=== PATIENT | female | born 1995 | race Two or more races ===

== ENCOUNTER 2019-08-04 14:17 | Emergency (ER) | payer SELFPAY ==
[2019-08-04] MEDS ORDERED: NORMAL SALINE 1000 ML 1,000 ML IV PRN (14:31)
--- NOTE | 2019-08-04 14:39 | ER Document Report ---
ED Medical Screen (RME) - General Chief Complaint: Urinary Frequency Stated Complaint: URINARY PROBLEM Time Seen by Provider: 08/04/19 14:29 Mode of Arrival: Ambulatory Information source: Patient TRAVEL OUTSIDE OF THE U[place] IN LAST 30 DAYS: No - HPI Notes: 08/04/19 14:38 This very pleasant 24-year-old female presented to the emergency room today stating that she has frequency urgency blood in her urine she is 7 months does have some intermittent cramping pains to her abdomen. - Related Data Allergies/Adverse Reactions: No Known Allergies Allergy (Verified 08/04/19 14:29) Physical Exam - Vital signs Vitals: Temp Pulse Resp BP Pulse Ox 98.1 F 80 16 97/59 L 96 08/04/19 14:27 08/04/19 14:27 08/04/19 14:27 08/04/19 14:27 08/04/19 14:27 Interpretation: Normal - General General appearance: Appears well, Alert - HEENT Head: Normocephalic, Atraumatic Eyes: Normal Pupils: PERRL - Respiratory Respiratory status: No respiratory distress Chest status: Nontender Breath sounds: Normal Chest palpation: Normal - Cardiovascular Rhythm: Regular Heart sounds: Normal auscultation Murmur: No - Abdominal Inspection: Normal Distension: No distension Bowel sounds: Normal Tenderness: Nontender Organomegaly: No organomegaly - Back Back: Normal, Nontender - Extremities General upper extremity: Normal inspection, Nontender, Normal color, Normal ROM, Normal temperature General lower extremity: Normal inspection, Nontender, Normal color, Normal ROM, Normal temperature, Normal weight bearing. No: Alejandra's sign - Neurological Neuro grossly intact: Yes Cognition: Normal Orientation: AAOx4 [place] Coma Scale Eye Opening: Spontaneous [place] Coma Scale Verbal: Oriented Otilia Coma Scale Motor: Obeys Commands Otilia Coma Scale Total: 15 Speech: Normal Motor strength normal: LUE, RUE, LLE, RLE Sensory: Normal - Psychological Associated symptoms: Normal affect, Normal mood - Skin Skin Temperature: Warm Skin Moisture: Dry Skin Color: Normal Course - Vital Signs Vital signs: Temp Pulse Resp BP Pulse Ox 98.1 F 80 16 97/59 L 96 08/04/19 14:27 08/04/19 14:27 08/04/19 14:27 08/04/19 14:27 08/04/19 14:27
[2019-08-04 15:48] LABS: ABSOLUTE EOSINOPHILS # (AUTO) 0.1 10^3/uL (0.0-0.6); ABSOLUTE LYMPHOCYTES (AUTO) 1.6 10^3/uL (0.5-4.7); ABSOLUTE MONOCYTES (AUTO) 0.9 10^3/uL (0.1-1.4); ABSOLUTE NEUT (AUTO) 6.6 10^3/uL (1.7-8.2); BASOPHILS % (AUTO) 0.2 % (0-2); EOSINOPHILS % (AUTO) 0.7 % (0-6); HEMATOCRIT 33.3 % (36.0-47.0); HEMOGLOBIN 11.4 g/dL (12.0-15.5); LYMPHOCYTES % (AUTO) 17.8 % (13-45); MEAN CORPUSCULAR HEMOGLOBIN 26.9 pg (27.0-33.4); MEAN CORPUSCULAR HGB CONC 34.2 g/dL (32.0-36.0); MEAN CORPUSCULAR VOLUME 79 fl (80-97); MONOCYTES % (AUTO) 9.6 % (3-13); PLATELET COUNT 222 10^3/uL (150-450); RED BLOOD COUNT 4.23 10^6/uL (3.72-5.28); SEGMENTED NEUTROPHILS % (AUTO) 71.7 % (42-78); TOTAL CELLS COUNTED % (AUTO) 100 %; WHITE BLOOD COUNT 9.3 10^3/uL (4.0-10.5)
[2019-08-04 15:50] LABS: ALBUMIN 3.4 g/dL (3.5-5.0); ALKALINE PHOSPHATASE 107 U/L (38-126); ANION GAP 7 (5-19); ASPARTATE AMINO TRANSFERASE 16 U/L (14-36); BILIRUBIN,TOTAL 0.2 mg/dL (0.2-1.3); BLOOD UREA NITROGEN 7 mg/dL (7-20); CARBON DIOXIDE 22 mmol/L (22-30); CHLORIDE 107 mmol/L (98-107); GLUCOSE 78 mg/dL (75-110); POTASSIUM 3.9 mmol/L (3.6-5.0); TOTAL PROTEIN 6.4 g/dL (6.3-8.2)
[2019-08-04 15:51] LABS: APPEARANCE,URINE CLOUDY; BILIRUBIN,URINE NEGATIVE (NEGATIVE); COLOR,URINE YELLOW; GLUCOSE, URINE NEGATIVE (NEGATIVE); KETONES,URINE TRACE mg/dL (NEGATIVE); LEUKOCYTE ESTERASE,URINE LARGE (NEGATIVE); NITRITE,URINE NEGATIVE (NEGATIVE); PROTEIN,URINE 30 mg/dL (NEGATIVE); URINE SPECIFIC GRAVITY 1.023
--- NOTE | 2019-08-04 16:14 | ER Document Report ---
Entered by CAYETANO ELLIS SCRIBE 08/04/19 1609 Acting as scribe for:HUYEN SHAH DO ED GI/ - General Chief Complaint: Urinary Frequency Stated Complaint: URINARY PROBLEM Time Seen by Provider: 08/04/19 14:29 Mode of Arrival: Ambulatory Information source: Patient Notes: This 24-year-old female patient presents to the emergency department today with complaints of hematuria and urinary frequency for the last few days. Patient is G5 and is currently 7 months . Patient had been being OBGYN through the but her got out several months ago so she has not had any OB follow up in several months. TRAVEL OUTSIDE OF THE [place] IN LAST 30 DAYS: No - Related Data Allergies/Adverse Reactions: No Known Allergies Allergy (Verified 08/04/19 14:29) Past Medical History - General Information source: Patient - Social History Smoking Status: Never Smoker Cigarette use (# per day): No Lives with: Family Family History: Reviewed & Not Pertinent Patient has suicidal ideation: No Patient has homicidal ideation: No Review of Systems - Review of Systems Constitutional: No symptoms reported EENT: No symptoms reported Cardiovascular: No symptoms reported Respiratory: No symptoms reported Gastrointestinal: No symptoms reported Genitourinary: See HPI, Frequency, Hematuria Female Genitourinary: See HPI, Musculoskeletal: No symptoms reported Skin: No symptoms reported Hematologic/Lymphatic: No symptoms reported Neurological/Psychological: No symptoms reported -: Yes All other systems reviewed and negative Physical Exam - Vital signs Vitals: Temp Pulse Resp BP Pulse Ox 98.1 F 80 16 97/59 L 96 08/04/19 14:27 08/04/19 14:27 08/04/19 14:27 08/04/19 14:27 08/04/19 14:27 - Notes Notes: Physical Exam: General: Alert, appears well. HEENT: Normocephalic. Atraumatic. PERRL. Extraocular movements intact. Oropharynx clear. Neck: Supple. Non-tender. Respiratory: No respiratory distress. Clear and equal breath sounds bilaterally. Cardiovascular: Regular rate and rhythm. Abdominal: Suprapubic tenderness with palpation. Gravid uterus. Back: No gross abnormalities. Extremities: Moves all four extremities. Upper extremities: Normal inspection. Normal ROM. Lower extremities: Normal inspection. No edema. Normal ROM. Neurological: Normal cognition. AAOx4. Normal speech. Psychological: Normal affect. Normal Mood. Skin: Warm. Dry. Normal color. Course - Re-evaluation Re-evalutation: 08/04/19 19:01 MDM 24 year old in 3rd trimester is here with uti. Edward is ok and she tells me she will follow up. - Vital Signs Vital signs: Temp Pulse Resp BP Pulse Ox 98.1 F 80 16 97/59 L 96 08/04/19 14:27 08/04/19 14:27 08/04/19 14:27 08/04/19 14:27 08/04/19 14:27 - Laboratory Result Diagrams: 08/04/19 14:41 08/04/19 14:41 Laboratory results interpreted by me: 08/04/19 08/04/19 08/04/19 14:41 14:41 15:32 Hgb 11.4 L Hct 33.3 L MCV 79 L MCH 26.9 L Sodium 135.6 L Albumin 3.4 L Urine Protein 30 H Urine Ketones TRACE H Urine Urobilinogen 4.0 H Ur Leukocyte Esterase LARGE H Urine HCG, Qual POSITIVE H Discharge - Discharge Clinical Impression: UTI (urinary tract infection) Qualifiers: Urinary tract infection type: acute cystitis Hematuria presence: with hematuria Qualified Code(s): N30.01 - Acute cystitis with hematuria Supervision of normal IUP (intrauterine ) in multigravida Qualifiers: Trimester: third trimester Qualified Code(s): Z34.83 - Encounter for supervision of other normal , third trimester Condition: Good Disposition: HOME, SELF-CARE Instructions: Cephalexin ([facility]), Urinary Tract Infection ([facility]) Additional Instructions: Call OB for follow up. Take your medicine as directed. Return here for any problems or any concerns. Referrals: IRA JIMENEZ MD [ACTIVE STAFF] - Follow up as needed I personally performed the services described in the documentation, reviewed and edited the documentation which was dictated to the scribe in my presence, and it accurately records my words and actions.
[2019-08-04] MEDS ORDERED: CEFTRIAXONE 1 GM/D5W RTU 1 GM/50 ML RTUPB IV ONE (16:15)
--- NOTE | 2019-08-04 16:51 | RADIOLOGY REPORT (SQ) ---
EXAM DESCRIPTION: U/S OB LIMITED COMPLETED DATE/TIME: 08/04/2019 4:36 pm REASON FOR STUDY: pain COMPARISON: None. TECHNIQUE: Limited transabdominal grayscale ultrasound for evaluation of specific requested obstetri poornima parameters. LIMITATIONS: None. FINDINGS: CERVICAL LENGTH: Unable to visualize the cervix - the patient's urinary bladder is empty. BISHOP: 8.1 cm. FHR: 1571 beats per minute. PRESENTATION: Not assessed. PLACENTA: Anterior ANATOMY: Not assessed OTHER: No other findings. IMPRESSION: LIMITED OBSTETRICAL ULTRASOUND WITH MEASURED PARAMETERS DELINEATED ABOVE. Trimester of : Third trimester - 28 weeks to delivery. TECHNICAL DOCUMENTATION: JOB ID: [id number] 2010 [employer]- All Rights Reserved Reading location - IP/workstation name: [email or web address]
[2019-08-04 19:32] VITALS: BP 100/62
== END 2019-08-04 19:32 | disposition home or self-care (01) ==
LOC: ER 14:17
DX: O23.13 Infections of bladder in pregnancy, third trimester (principal); R35.0 Frequency of micturition; R31.9 Hematuria, unspecified
CPT/HCPCS: 99284; 96361; 96365; 96366; 86900; 86901; 36415; 85025; 81025; 80053; 81001; 76815; J7030; J0696

== ENCOUNTER 2019-08-08 00:18 | Outpatient (CLI) | payer SELFPAY ==
[2019-08-08] MEDS ORDERED: CEFTRIAXONE INJ 1000 MG VIAL IM ONE (00:56)
[2019-08-08] MEDS ORDERED: RINGERS SOLUTION,LACTATED 1,000 ML IV PRN (00:56)
[2019-08-08] MEDS ORDERED: CEFTRIAXONE INJ 1000 MG VIAL IV ONE (00:56)
[2019-08-08] MEDS ORDERED: CEFTRIAXONE INJ 1000 MG VIAL ONE (00:57)
[2019-08-08 01:05] LABS: APPEARANCE,URINE SLIGHTLY-CLOUDY; BILIRUBIN,URINE NEGATIVE (NEGATIVE); COLOR,URINE YELLOW; GLUCOSE, URINE NEGATIVE (NEGATIVE); KETONES,URINE NEGATIVE (NEGATIVE); LEUKOCYTE ESTERASE,URINE NEGATIVE (NEGATIVE); NITRITE,URINE NEGATIVE (NEGATIVE); PROTEIN,URINE NEGATIVE (NEGATIVE); URINE SPECIFIC GRAVITY 1.023; UROBILINOGEN,URINE NEGATIVE mg/dL (<2.0)
[2019-08-08 01:18] LABS: URINE AMPHETAMINES SCREEN NEGATIVE; URINE BARBITURATES SCREEN NEGATIVE; URINE BENZODIAZEPINES SCREEN NEGATIVE; URINE COCAINE SCREEN NEGATIVE; URINE MARIJUANA (THC) SCREEN NEGATIVE; URINE METHADONE SCREEN NEGATIVE; URINE PHENCYCLIDINE SCREEN NEGATIVE
[2019-08-08] MEDS ORDERED: CEFTRIAXONE 1 GM/D5W RTU 1 GM/50 ML RTUPB IV ONE (02:00)
== END 2019-08-08 02:38 | disposition home or self-care (01) ==
LOC: LC 00:18
PROVIDERS: ATTEND Obstetrics & Gynecology Gynecology
PROC: 4A1HXCZ Monitoring of Products of Conception, Cardiac Rate, External Approach (ICD-10-PCS; principal; 2019-08-08)
DX: Z34.93 Encounter for supervision of normal pregnancy, unspecified, third trimester (principal)
CPT/HCPCS: 81001; 80307; 59899; J0696

== ENCOUNTER 2019-10-24 07:58 | Outpatient (CLI) | payer OTHER, MEDICAID ==
[2019-10-24 09:15] LABS: APPEARANCE,URINE SLIGHTLY-CLOUDY; BILIRUBIN,URINE NEGATIVE (NEGATIVE); COLOR,URINE YELLOW; GLUCOSE, URINE NEGATIVE (NEGATIVE); KETONES,URINE NEGATIVE (NEGATIVE); LEUKOCYTE ESTERASE,URINE LARGE (NEGATIVE); NITRITE,URINE NEGATIVE (NEGATIVE); PROTEIN,URINE NEGATIVE (NEGATIVE); URINE SPECIFIC GRAVITY 1.006
[2019-10-24 09:31] LABS: URINE AMPHETAMINES SCREEN NEGATIVE; URINE BARBITURATES SCREEN NEGATIVE; URINE BENZODIAZEPINES SCREEN NEGATIVE; URINE COCAINE SCREEN NEGATIVE; URINE MARIJUANA (THC) SCREEN NEGATIVE; URINE METHADONE SCREEN NEGATIVE; URINE PHENCYCLIDINE SCREEN NEGATIVE
--- NOTE | 2019-10-24 12:56 | Non Stress Test Report ---
Non Stress Test Datetime Report Generated by CPN: 10/24/2019 12:55 DEMOGRAPHIC EGA NST: 41.0 VITAL SIGNS Temperature - NST: 97.2 Pulse - NST: 101 RESP - NST: 16 NBPSYS NST: 103 NBPDIA NST: 70 MONITORING Monitor Explained: Monitor Explained; Test Explained; Patient Verbalized Understanding Time on Monitor: 10/24/2019 08:21 Time off Monitor: 10/24/2019 09:24 NST Duration: 63 NST INTERVENTIONS NST Interventions: None Physician Notified NST: J Sanz CNM BABY A: [id number] BABY A Movement : Present Contraction Frequency : none FHR Baseline : 135 Accelerations : 15X15 Decelerations : None Variability : Moderate 6-25bpm NST Review: Meets Criteria for Reactive NST NST Review and Verified By : Kristen Mooney RN NST Results: Reactive NST REPORT Report Trigger: Send Report
== END 2019-10-24 10:22 | disposition home or self-care (01) ==
LOC: LC 07:58
PROVIDERS: ATTEND Obstetrics & Gynecology Gynecology
DX: O36.8130 Decreased fetal movements, third trimester, not applicable or unspecified (principal); O09.33 Supervision of pregnancy with insufficient antenatal care, third trimester; O48.0 Post-term pregnancy; Z3A.41 41 weeks gestation of pregnancy
CPT/HCPCS: 80307; 81005

== ENCOUNTER 2019-10-27 07:25 | Inpatient (IN) | payer OTHER, MEDICAID ==
[2019-10-27] MEDS: RINGERS SOLUTION,LACTATED 1,000 ML IV PRN ×3 (08:04→12:56)
--- NOTE | 2019-10-27 08:34 | Admission Physical ---
Datetime Report Generated by CPN: 10/27/2019 08:34 CURRENT ADMISSION Chief Complaint: Scheduled Induction of Labor Indication for Induction: Post Dates Admit Impression : No Active Labor; Admit Plan: Admit to Unit; Initiate Labor Induction Protocol ALLERGIES Medication Allergies: No Medication Allergies: No Known Allergies (10/24/2019) Latex: No Latex Allergies OBSTETRICAL HISTORY EDC: 10/17/2019 00:00 : 5 Para: 2 Term: 1 : 1 SAB: 2 Livin Cesareans: 1 VBACs: 1 Current Procedures: Ultrasound Obstetrical History Comments: [id number] SAB G2- 2011 SAB G3- 2015 at 36 weeks for oligo, pre-e G4- 2016 at 41.5 weeks G5- current (Annotations: Data stored by [facility] on behalf of user) SEE RECORDS Alcohol: No Marijuana : No Cocaine: No Other Illicit Drugs: No Cigarettes: Never Smoker. [id number] PHYSICAL EXAM General: Normal HEENT: Deferred Neurologic: Normal Thyroid: Deferred Heart: Normal Lungs: Normal Breast: Deferred Back: Deferred Abdomen: Normal Genitourinary Exam: Deferred Extremities: Normal DTRs: Normal Pelvic Type: Adequate Physical Exam Comments: Cervix per Dr. Chambers, high, 2 cm Vital Signs: Reviewed MEMBRANES Membranes: Intact FETUS A EGA: 41.3 Monitoring: External US Accelerations: 15X15 Decelerations: None FHR Category: Category I Presentation: Vertex Admit Comment: late transfer 36 wks from [facility] 2018 INFORMED CONSENT Assignment: Shamika Reyes, MD Signature: with User ID: [email or web address] : with User ID: [email or web address]
[2019-10-27] MEDS ORDERED: OXYTOCIN/0.9 % SODIUM CHLORIDE 30 UNIT/500 ML RTUINJ IV PRN ×2 (08:36→16:57)
[2019-10-27] MEDS ORDERED: LIDOCAINE 1% INJ-PF (10 MG/ML) 30 ML SDV ONE (08:57)
[2019-10-27] MEDS ORDERED: OXYTOCIN 10 UNIT/ML VIAL ONE (08:57)
[2019-10-27] MEDS ORDERED: MISOPROSTOL 0.2 MG TABLET ONE (08:57)
[2019-10-27] MEDS ORDERED: OXYTOCIN/0.9 % SODIUM CHLORIDE 30 UNIT/500 ML RTUINJ ONE (08:57)
[2019-10-27 09:18] LABS: APPEARANCE,URINE CLEAR; BILIRUBIN,URINE NEGATIVE (NEGATIVE); COLOR,URINE YELLOW; GLUCOSE, URINE NEGATIVE (NEGATIVE); KETONES,URINE NEGATIVE (NEGATIVE); LEUKOCYTE ESTERASE,URINE SMALL (NEGATIVE); NITRITE,URINE NEGATIVE (NEGATIVE); PROTEIN,URINE NEGATIVE (NEGATIVE); URINE SPECIFIC GRAVITY 1.013
[2019-10-27 09:37] LABS: URINE AMPHETAMINES SCREEN NEGATIVE; URINE BARBITURATES SCREEN NEGATIVE; URINE BENZODIAZEPINES SCREEN NEGATIVE; URINE COCAINE SCREEN NEGATIVE; URINE MARIJUANA (THC) SCREEN NEGATIVE; URINE METHADONE SCREEN NEGATIVE; URINE PHENCYCLIDINE SCREEN NEGATIVE
[2019-10-27 09:38] LABS: HEMATOCRIT 30.7 % (36.0-47.0); HEMOGLOBIN 10.1 g/dL (12.0-15.5); MEAN CORPUSCULAR HEMOGLOBIN 24.8 pg (27.0-33.4); MEAN CORPUSCULAR HGB CONC 32.8 g/dL (32.0-36.0); MEAN CORPUSCULAR VOLUME 76 fl (80-97); PLATELET COUNT 236 10^3/uL (150-450); RED BLOOD COUNT 4.05 10^6/uL (3.72-5.28); RED CELL DISTRIBUTION WIDTH 15.8 % (11.5-14.0); WHITE BLOOD COUNT 8.8 10^3/uL (4.0-10.5)
[2019-10-27] MEDS ORDERED: FENTANYL/BUPIVACAINE/NS/PF 300 MCG/150 ML RTUINJ EPI ONE (10:46)
[2019-10-27] MEDS ORDERED: EPHEDRINE SULFATE INJ 50 MG/1 ML AMPULE ONE (10:46)
[2019-10-27] MEDS ORDERED: BUPIVACAINE HCL 0.25 % INJ/PF (2.5 MG/1 ML) 30 ML VIAL ONE (10:47)
[2019-10-27] MEDS ORDERED: PROMETHAZINE HCL 25 MG TABLET PO PRN (16:57)
[2019-10-27] MEDS ORDERED: DIPH/PERTUSS(ACELL)/TETANUS VAC/PF 0.5 ML SYR (>=10YO) IM PRN (16:57)
[2019-10-27] MEDS ORDERED: PROMETHAZINE HCL INJ 25 MG/1 ML VIAL IV PRN (16:57)
[2019-10-27] MEDS ORDERED: DIBUCAINE 1% OINTMENT 28 GM TP PRN (16:57)
[2019-10-27] MEDS ORDERED: PSEUDOEPHEDRINE HCL 30 MG TABLET PO PRN (16:57)
[2019-10-27] MEDS ORDERED: DIPHENHYDRAMINE HCL 25 MG CAPSULE PO PRN (16:57)
[2019-10-27] MEDS ORDERED: PROMETHAZINE HCL 25 MG SUPP.RECT PR PRN (16:57)
[2019-10-27] MEDS ORDERED: BENZOCAINE/MENTHOL AEROSOL SPRAY 56 ML TOP PRN (16:57)
[2019-10-27] MEDS ORDERED: MAGNESIUM HYDROXIDE SUSP 30 ML UDCUP PO PRN (16:57)
[2019-10-27] MEDS ORDERED: GLYCERIN/WITCH HAZEL LEAF 1 EACH MED..WIPE TP PRN (16:57)
[2019-10-27] MEDS ORDERED: ACETAMINOPHEN 650 MG SUPP.RECT PR PRN (16:57)
[2019-10-27] MEDS ORDERED: NA PHOS,M-B/NA PHOS,DI-BA (ADULT) 133 ML ENEMA PR PRN (16:57)
[2019-10-27] MEDS ORDERED: ACETAMINOPHEN WITH CODEINE #3 TABLET PO PRN (16:57)
[2019-10-27] MEDS ORDERED: ZOLPIDEM TARTRATE 5 MG TABLET PO PRN (16:57)
[2019-10-27] MEDS ORDERED: MEASLES,MUMPS&RUBELLA VACC/PF 0.5 ML VIAL SUBCUT PRN (16:57)
--- NOTE | 2019-10-27 19:37 | Delivery Summary ---
Del Sum A-C Datetime Report Generated by CPN: 10/27/2019 19:37 DELIVERY PERSONNEL DELIVERY PERSONNEL: [id number] Nurse Supervisor [employer] Certified:: Genie Ge CNM Labor and Delivery Nurse:: Aleena Mooney RN Student Observers:: Kinjal Sharma RN (2nd L_D Nurse) MATERNAL INFORMATION Delivery Anesthesia: Epidural Medications After Delivery: Pitocin 30 Units in 500ml NS/D5W Meds After Delivery Comment: open bolus Delivery QBL: 300 Delivery QBL Comment: 300 Maternal Complications: Other Complication Details: manual removal of placenta at 29 minutes secondary to bleeding Provider Comments: Pt C/+3 with urge to push, called into room for delivery. Pt not pushing effectively, head visible with pushing but with minimal descent. I was called to another room for imminent delivery. Baby was delivered by Kristen Mooney RN. I returned to room for delivery of placenta. Placenta was not at 29 min without bleeding. As bleeding increased I manually removed placenta. Perineum repaired as above. Bleeding stabilized, mother and baby stable upon leaving the room. LABOR SUMMARY EDC: 10/17/2019 00:00 No. Babies in Womb: 1 Attempted: Yes Labor Anesthesia: Epidural LABOR INFORMATION Reason for Induction: Post Dates Reason for Induction- Other: post dates Onset of Labor: 10/27/2019 11:00 Complete Dilatation: 10/27/2019 15:31 Oxytocin: Induction Group B Beta Strep: negative Steroids Given: None Reason Steroids Not Administered: Not Applicable MEMBRANES Membranes Rupture Method: Artificial Rupture of Membranes: 10/27/2019 09:57 Length of Rupture (hr): 6.00 Amniotic Fluid Color: Clear Amniotic Fluid Amount: Small Amniotic Fluid Odor: Normal STAGES OF LABOR Stage 1 hr: 4 Stage 1 min: 31 Stage 2 hr: 0 Stage 2 min: 26 Stage 3 hr: 0 Stage 3 min: 29 Total Time in Labor hr: 5 Total Time in Labor min: 26 VAGINAL DELIVERY Episiotomy: None Laceration #1: Perineal; Vaginal (Annotations: Data stored by [facility] on behalf of user) Laceration Extension #1: Second Degree Other Laceration: superficial vaginal lacerations Laceration Repair: Yes Laceration Repair Note: lidocaine used for repair, 2.0 chromic. Perineal repair in usual fashion Sponge Count Correct: N/A CSECTION DELIVERY Primary Indication: N/A Secondary Indication: N/A CSection Incidence: N/A Labor: N/A Elective: N/A CSection Incision: N/A BABY A INFORMATION Delivery Date/Time: 10/27/2019 15:57 Method of Delivery: Vaginal Nurse Controlled Delivery: Yes Born in Route : No : Successful Forceps: N/A Vacuum Extraction: N/A Shoulder Dystocia : No PRESENTATION/POSITION BABY A Presentation: Cephalic Cephalic Presentation: Vertex Vertex Position: Left Occipital Anterior Breech Presentation: N/A PLACENTA INFORMATION BABY A Placenta Delivery Time : 10/27/2019 16:26 Placenta Method of Delivery: Manual Removal Placenta Status: Delivered SCORES BABY A Heart Rate 1 min: >100 bpm Resp Effort 1 min: Good Cry Reflex Irritability 1 min: Cough or Sneeze or Pulls Away Muscle Tone 1 min: Active Motion Color 1 min: Body [place] [facility], Extremities Blue Resuscitation Effort 1 min: N/A SCORE 1 MIN: 9 Heart Rate 5 min: >100 bpm Resp Effort 5 min: Good Cry Reflex Irritability 5 min: Cough or Sneeze or Pulls Away Muscle Tone 5 min: Active Motion Color 5 min: Body [facility], Extremities Blue Resuscitation Effort 5 min: N/A SCORE 5 MIN: 9 INFANT INFORMATION BABY A Gestational Age at Delivery: 41.3 Gestational Status: Late Term- 41- 41.6 Weeks Infant Outcome : Liveborn Infant Condition : Stable Infant Sex: Male IDENTIFICATION BABY A Verification Date/Time: 10/27/2019 16:59 ID Band Number: [id number] Mother's Name Verified: Yes Infant RN Verifying : Kristen MooneyVISHAL Additional Verifying Personnel: Elo James RN WEIGHT/LENGTH BABY A Infant Birthweight (gm): 3750 Weight (lb): 8 Weight (oz): 4 Length (in): 20.50 Infant Length (cm): 52.07 CORD INFORMATION BABY A No. Cord Vessels: 3 Nuchal Cord : N/A Cord Blood Taken: Yes-For Eval (Mom's Blood Type - or O+) Infant Suction: None ASSESSMENT BABY A Infant Complications: None Physical Findings at Delivery: Within Normal Limits Infant Respirations: Appears Normal Skin to Skin: Yes Skin to Skin Time (min): 50 [employer]rain I Farmworker/ALS Called : No Infant Care By: Kristen Mooney RN Transferred To: Remains with Mother SIGNATURES Assignment: Shamika Chambers MD Signature: with User ID: [email or web address] : with User ID: [email or web address] : I was personally available for consultation and serving as supervising physician for the MLP.
[2019-10-27] MEDS: IBUPROFEN 800 MG TABLET PO SCH (22:01)
[2019-10-27] MEDS: FAMOTIDINE 20 MG TABLET PO SCH (22:01)
[2019-10-28] MEDS: DOCUSATE SODIUM 100 MG CAPSULE PO SCH ×3 (03:00→17:52)
[2019-10-28] MEDS: FERROUS SULFATE 325 MG TABLET PO SCH ×3 (03:00→17:53)
[2019-10-28] MEDS: IBUPROFEN 800 MG TABLET PO SCH ×3 (05:49→21:13)
[2019-10-28] MEDS: SIMETHICONE 80 MG TAB.CHEW PO PRN ×2 (05:49→21:14)
[2019-10-28 08:01] LABS: HEMATOCRIT 28.9 % (36.0-47.0); HEMOGLOBIN 9.5 g/dL (12.0-15.5); MEAN CORPUSCULAR HGB CONC 32.9 g/dL (32.0-36.0); MEAN CORPUSCULAR VOLUME 76 fl (80-97); PLATELET COUNT 227 10^3/uL (150-450); RED CELL DISTRIBUTION WIDTH 15.7 % (11.5-14.0); WHITE BLOOD COUNT 11.3 10^3/uL (4.0-10.5)
[2019-10-28] MEDS: PRENATAL VITAMIN W DHA CAPSULE PO SCH (10:01)
[2019-10-28] MEDS: SENNOSIDES/DOCUSATE 8.6-50 MG 1 EACH TABLET PO SCH (10:01)
[2019-10-28] MEDS: FAMOTIDINE 20 MG TABLET PO SCH ×2 (10:01→21:13)
[2019-10-28] MEDS: ACETAMINOPHEN WITH CODEINE #3 TABLET PO PRN ×2 (10:05→17:52)
--- NOTE | 2019-10-28 10:27 | PDOC PROGRESS REPORT ---
Subjective-OB Progress Note for:: 10/28/19 Physical Exam (OB) Vital Signs: Temp Pulse Resp BP Pulse Ox 98.1 F 83 18 96/57 L 100 10/28/19 07:45 10/28/19 07:45 10/28/19 07:45 10/28/19 07:45 10/28/19 07:45 Intake & Output 10/27/19 10/28/19 10/29/19 06:59 06:59 06:59 Intake Total 596 600 Balance 596 600 Weight 83.7 kg - PIH/Pre-Eclampsia Headache: Absent Epigastric Pain: No Visual Changes: No - Lochia Lochia Amount: Small 10-25 ml Lochia Color: Rubra/Red - Abdomen Description: Soft, Round Hernia Present: No Bowel Sounds: Normoactive Flatus Presence: Present Stool: No Fundal Description: Firm, Midline Fundal Height: u/u - u/2 Objective-Diagnostic Laboratory: 10/28/19 07:25 10/27/19 10/28/19 09:20 07:25 WBC 11.3 H RBC 3.80 Hgb 9.5 L Hct 28.9 L MCV 76 L MCH 25.0 L MCHC 32.9 RDW 15.7 H Plt Count 227 Blood Type O POSITIVE Antibody Screen NEGATIVE
[2019-10-29] MEDS: IBUPROFEN 800 MG TABLET PO SCH ×2 (05:45→15:20)
[2019-10-29 08:28] VITALS: BP 110/70
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
[2019-10-29] MEDS: FERROUS SULFATE 325 MG TABLET PO SCH ×2 (10:27→18:06)
[2019-10-29] MEDS: FAMOTIDINE 20 MG TABLET PO SCH (10:27)
[2019-10-29] MEDS: PRENATAL VITAMIN W DHA CAPSULE PO SCH (10:27)
[2019-10-29] MEDS: DOCUSATE SODIUM 100 MG CAPSULE PO SCH ×2 (10:27→18:06)
[2019-10-29] MEDS: SENNOSIDES/DOCUSATE 8.6-50 MG 1 EACH TABLET PO SCH (10:27)
[2019-10-29] MEDS: ACETAMINOPHEN WITH CODEINE #3 TABLET PO PRN (13:01)
== END 2019-10-29 19:48 | disposition home or self-care (01) | DRG 807 ==
LOC: LR 07:25 → 2S 19:43
PROVIDERS: ADMIT Obstetrics & Gynecology; ATTEND Obstetrics & Gynecology
PROC: 10E0XZZ Delivery of Products of Conception, External Approach (ICD-10-PCS; principal; 2019-10-27)
PROC: 0KQM0ZZ Repair Perineum Muscle, Open Approach (ICD-10-PCS; 2019-10-27)
PROC: 10907ZC Drainage of Amniotic Fluid, Therapeutic from Products of Conception, Via Natural or Artificial Opening (ICD-10-PCS; 2019-10-27)
DX: O48.0 Post-term pregnancy (principal); Z37.0 Single live birth; O34.219 Maternal care for unspecified type scar from previous cesarean delivery; O70.1 Second degree perineal laceration during delivery; O99.02 Anemia complicating childbirth; D64.9 Anemia, unspecified; Z3A.41 41 weeks gestation of pregnancy; Z86.14 Personal history of Methicillin resistant Staphylococcus aureus infection; Z91.5 Personal history of self-harm; Z91.411 Personal history of adult psychological abuse
CPT/HCPCS: 1967; 36415; 80307; 81005; 85027; 86592; 86850; 86900; 86901; J2590; J3010; J3490

== ENCOUNTER 2020-03-12 09:56 | Emergency (ER) | payer MEDICAID, OTHER ==
[2020-03-12] MEDS ORDERED: IBUPROFEN 600 MG TABLET PO ONE (10:30)
--- NOTE | 2020-03-12 10:30 | ER Document Report ---
HPI - HPI Patient complains to provider of: right knee injury Time Seen by Provider: 03/12/20 10:15 Pain Level: 3 Notes: 24-year-old female to the emergency department with complaints of right knee pain that occurred last night. She states she is immediately when she accidentally hit the brake on her left gate and twisted down onto her right knee. She states that since then she has pain in the knee. She cannot stand, and tolerate the pain but she has a lot of pain when she first is getting up and moving around. Not taking anything for the pain because she is breast-feeding. She denies any other injuries. She states the knee is swollen and red. - ROS Systems Reviewed and Negative: Yes All other systems reviewed and negative - CONSTITUTIONAL Constitutional: DENIES: Fever, Chills - EENT EENT: DENIES: Sore Throat, Ear Pain, Congestion - NEURO Neurology: DENIES: Headache, Weakness - CARDIOVASCULAR Cardiovascular: DENIES: Chest pain - RESPIRATORY Respiratory: DENIES: Trouble Breathing, Coughing - GASTROINTESTINAL Gastrointestinal: DENIES: Abdominal Pain, Nausea, Patient vomiting, Diarrhea - MUSCULOSKELETAL Musculoskeletal: REPORTS: Extremity pain - right knee pain - DERM Skin Color: Normal Skin Problems: None Past Medical History - General Information source: Patient - Social History Smoking Status: Never Smoker Chew tobacco use (# tins/day): No Frequency of alcohol use: None Drug Abuse: None Family History: Reviewed & Not Pertinent Patient has homicidal ideation: No Psychiatric Medical History: Denies: Hx Depression Vertical Provider Document - CONSTITUTIONAL Agree With Documented VS: Yes Exam Limitations: No Limitations General Appearance: WD/WN Notes: Mild pain discomfort. Right knee is elevated - INFECTION CONTROL TRAVEL OUTSIDE OF THE [place] IN LAST 30 DAYS: No - HEENT HEENT: Atraumatic, Normocephalic, PERRLA - NECK Neck: Normal Inspection, Supple - RESPIRATORY Respiratory: Breath Sounds Normal, No Respiratory Distress. negative: Rales, Rhonchi, Wheezing - CARDIOVASCULAR Cardiovascular: Regular Rate, Regular Rhythm, No Murmur - GI/ABDOMEN Gastrointestinal: Abdomen Soft, Abdomen Non-Tender, No Organomegaly - BACK Back: Normal Inspection - MUSCULOSKELETAL/EXTREMETIES Notes: There is tenderness to palpation to the anterior right knee joint line. There is mild joint effusion. There is no erythema or warmth to the joint. Patient will not allow me to test for anterior drawer. There is no laxity in valgus intact varus stress testing. However that movement does give her a little bit of pain. She is nontender to palpation of the right hip and right ankle. DP pulses are intact and equal. She can wiggle all toes. Cap refill is less than 2 seconds. - NEURO Level of Consciousness: Awake, Alert, Appropriate Motor/Sensory: No Motor Deficit, No Sensory Deficit - DERM Integumentary: Warm, Dry, No Rash Course - Re-evaluation Re-evalutation: Impression: Right knee sprain. Will place patient and Jony wrap and write for Motrin. I have encouraged elevating the knee and icing it. Was with her PCT when she applied the Jony wrap and patient stated it did make her knee feel better. We will also give her information to follow-up with an orthopedist have encouraged her to do so especially if the knee pain continues. Patient agrees with the plan. - Vital Signs Vital signs: Temp Pulse Resp BP Pulse Ox 98.6 F 86 18 102/63 99 03/12/20 10:02 03/12/20 10:02 03/12/20 10:02 03/12/20 10:02 03/12/20 10:02 - Diagnostic Test Radiology reviewed: Image reviewed, Reports reviewed Discharge - Discharge Clinical Impression: Right knee injury Qualifiers: Encounter type: initial encounter Qualified Code(s): S89.91XA - Unspecified injury of right lower leg, initial encounter Fall Qualifiers: Encounter type: initial encounter Qualified Code(s): W19.XXXA - Unspecified fall, initial encounter Right knee pain Qualifiers: Chronicity: acute Qualified Code(s): M25.561 - Pain in right knee Condition: Stable Disposition: HOME, SELF-CARE Instructions: Ice & Elevation ([facility]), Sprained Knee ([facility]) Additional Instructions: Wear Jony wrap without fail. Elevate and ice the knee. You can breast-feed and use Motrin at the same time. Follow-up with orthopedist if your knee pain persists beyond 1 week. Return if any worsening symptoms. No skating or significant exercises until your knee is better. Prescriptions: Ibuprofen [Motrin 800 mg Tablet] 800 mg PO Q8H PRN #30 tab PRN Reason: Referrals: GERMAN GALAN DO [ACTIVE STAFF] - Follow up in 1 week (for orthopedic follow up)
--- NOTE | 2020-03-12 11:05 | RADIOLOGY REPORT (SQ) ---
EXAM DESCRIPTION: KNEE RIGHT 4 VIEWS IMAGES COMPLETED DATE/TIME: 03/12/2020 10:54 am REASON FOR STUDY: knee pain, fall COMPARISON: None. NUMBER OF VIEWS: Four views. TECHNIQUE: AP, lateral, and both oblique radiographic images acquired of the right knee. LIMITATIONS: None. FINDINGS: MINERALIZATION: Normal. BONES: No acute fracture or dislocation. No worrisome bone lesions. JOINT: No effusion. SOFT TISSUES: No soft tissue swelling. No radio-opaque foreign body. OTHER: No other significant finding. IMPRESSION: NEGATIVE STUDY OF THE RIGHT KNEE. NO RADIOGRAPHIC EVIDENCE OF ACUTE INJURY. TECHNICAL DOCUMENTATION: JOB ID: [id number] 2010 [employer]- All Rights Reserved Reading location - IP/workstation name: [email or web address]
[2020-03-12 11:35] VITALS: BP 98/66
== END 2020-03-12 11:40 | disposition home or self-care (01) ==
LOC: ER 09:56
DX: S89.91XA Unspecified injury of right lower leg, initial encounter (principal); M25.561 Pain in right knee; W19.XXXA Unspecified fall, initial encounter
CPT/HCPCS: 99283; 73564; J3490